=== PATIENT | male | born 1985 | race Two or more races ===

== ENCOUNTER 2016-12-02 20:37 | Inpatient (IN) | payer OTHER ==
[~2016-12-02] VITALS: Ht 190.5 cm; Wt 101.9 kg
[2016-12-02 20:45] LABS: BASOPHIL COUNT 0.1 K/uL (0-0.1); EOSINOPHIL (%) 3.4 % (0-5); EOSINOPHIL COUNT 0.4 K/uL (0-0.3); IMMATURE GRANULOCYTE (%) 0.3 % (0.0-0.7); INSTRUMENT ABS NEUTROPHIL CT 7.2 K/uL; LYMPHOCYTE COUNT 3.3 K/uL (1.0-2.8); MCH 31.4 PG (29.0-34.0); MCV 92.3 FL (86-99); MEAN PLAT.VOLUME 8.9 uM^3 (9.0-12.4); NEUTROPHIL (%) 59.8 % (45-76); NEUTROPHIL COUNT 7.2 K/uL (1.8-6.4); PLATELET COUNT 243 K/uL (156-360); RBC DIS.WIDTH-SD 41.1 % (39-53); RED BLOOD COUNT 4.55 M/uL (4.00-5.50); WHITE BLOOD COUNT 11.9 K/uL (4.1-10.2)
[2016-12-02 20:57] LABS: AMYLASE 99 IU/L (1-118); CHLORIDE 101 mEq/L (99-109); POTASSIUM 3.9 mEq/L (3.7-5.4); SODIUM 138 mEq/L (136-147)
[2016-12-02 20:59] LABS: GLUCOSE 122 mg/dL (70-99)
[2016-12-02 21:00] LABS: ANION GAP 11 MEQ/L (2-14)
[2016-12-02 21:02] LABS: SERUM ETHYL ALCOHOL 394 mg/dL
[2016-12-02 21:04] LABS: UREA NITROGEN (BUN) 6 mg/dL (9-23)
[2016-12-02 21:05] LABS: GFR ESTIMATE (CALCULATED) > 59 mL/min/
[2016-12-02 21:06] LABS: LIPASE 23 U/L (1.0-51.0)
[2016-12-03 04:56] VITALS: BP 136/81
[2016-12-03 07:51] VITALS: BP 137/75
[2016-12-03 11:43] VITALS: BP 128/81
[2016-12-03 17:20] VITALS: BP 153/91
[2016-12-03 17:23] LABS: ADD MIUA? NO; BILIRUBIN NEGATIVE; BLOOD NEGATIVE; COLOR YELLOW ((YELLOW)); GLUCOSE (STRIP) 50; KETONES 5; LEUKOCYTES NEGATIVE; NITRITE NEGATIVE; PROTEIN (STRIP) NEGATIVE; UCUL ADDED? NO
[2016-12-03 17:30] LABS: AMPHETAMINE NEGATIVE (500 ng/mL); BARBITURATES NEGATIVE (200 ng/mL); BENZODIAZEPINES NEGATIVE (150 ng/mL); COCAINE NEGATIVE (150 ng/mL); INTERNAL CONTROLS VALID? YES; METHADONE NEGATIVE (200 ng/mL); METHAMPHETAMINE NEGATIVE (500 ng/mL); OPIATES (MORPHINE) PRESUMPTIVE POSITIVE (100 ng/mL); OXYCODONE PRESUMPTIVE POSITIVE (100 ng/mL); PHENCYCLIDINE NEGATIVE (25 ng/mL); PROPOXYPHENE NEGATIVE (300 ng/mL); THC CANNABINOIDS PRESUMPTIVE POSITIVE (50 ng/mL); TRICYCLIC ANTIDEPRESSANTS NEGATIVE (300 ng/mL)
[2016-12-03 17:31] LABS: ADD MEDTOX COMMENT Y
[2016-12-03 20:00] VITALS: BP 144/90
[2016-12-04 00:02] VITALS: BP 147/80
[2016-12-04 04:25] VITALS: BP 144/90
[2016-12-04 07:22] VITALS: BP 143/90
[2016-12-04 07:26] LABS: ALKALINE PHOSPHATASE 30 IU/L (3-129); ANION GAP 9 MEQ/L (2-14); CHLORIDE 97 MEQ/L (99-109); GFR ESTIMATE (CALCULATED) > 59 mL/min/; GLUCOSE 96 mg/dL (70-99); POTASSIUM 3.9 MEQ/L (3.7-5.4); SAMPLE HEMOLYSIS CHECK 0; SAMPLE ICTERIC CHECK 0; SAMPLE LIPEMIA CHECK 0; SODIUM 134 MEQ/L (136-147); TOTAL BILIRUBIN 0.9 MG/DL (0.0-1.0); UREA NITROGEN (BUN) 5 mg/dL (9-23)
[2016-12-04 09:34] LABS: HEMATOCRIT 32.7 % (38.0-50.0); MCH 32.6 PG (29.0-34.0); MCHC 35.8 G/DL (30.0-36.0); MCV 91.1 FL (86-99); RBC DIS.WIDTH-CV 11.7 % (11.8-14.6); RBC DIS.WIDTH-SD 39.1 % (39-53)
[2016-12-04 09:39] LABS: RED BLOOD COUNT 3.59 M/uL (4.00-5.50)
[2016-12-04 10:04] LABS: MEAN PLAT.VOLUME 9.5 uM^3 (9.0-12.4); PLAT.SUFFICIENCY ADEQUATE
[2016-12-04 10:10] LABS: PLATELET COUNT 156 K/uL (156-360)
[2016-12-04 11:06] VITALS: BP 135/81
[2016-12-04 15:57] VITALS: BP 146/85
[2016-12-04] MEDS ORDERED: PANTOPRAZOLE SO40 MG PO (16:14)
[2016-12-04] MEDS ORDERED: AMLODIPINE BESYL5 MG PO (16:15)
[2016-12-05 00:16] VITALS: BP 141/82
[2016-12-05 17:38] VITALS: BP 143/92; BP 143/920
[2016-12-05 23:45] VITALS: BP 150/77
[2016-12-06 07:32] VITALS: BP 131/89
[2016-12-06 15:58] VITALS: BP 127/71
[2016-12-06 20:36] VITALS: BP 137/91
[2016-12-07 01:01] VITALS: BP 139/85
[2016-12-07 04:40] VITALS: BP 131/85
[2016-12-07] MEDS ORDERED: AUGMENTIN875 MG PO (09:27)
[2016-12-07] MEDS ORDERED: NORCO 5/3251 TABLET PO (09:27)
== END 2016-12-07 14:39 | disposition home health service (06) | DRG 904 ==
LOC: TRA 20:37 → SDC 22:10 → TRA 22:10 → 2SOUTH 12-03 01:55 → 3EAST 12-03 01:55
PROVIDERS: Emergency Medicine; Surgery
DX: S41.021A Laceration with foreign body of right shoulder, initial encounter (principal); S06.0X9A Concussion with loss of consciousness of unspecified duration, initial encounter; S41.121A Laceration with foreign body of right upper arm, initial encounter; S40.021A Contusion of right upper arm, initial encounter; F10.129 Alcohol abuse with intoxication, unspecified; F12.90 Cannabis use, unspecified, uncomplicated; I10 Essential (primary) hypertension; S01.322A Laceration with foreign body of left ear, initial encounter; V47.5XXA Car driver injured in collision with fixed or stationary object in traffic accident, initial encounter; Y93.9 Activity, unspecified; Y92.9 Unspecified place or not applicable; Y99.9 Unspecified external cause status
CPT/HCPCS: 70450; 71260; 72125; 72129; 72132; 73030; 73060; 74177; 80048; 80053; 81003; 82150; 83690; 84999; 85025; 85027; 86900; 86901; 99281; 99285; G0480; J0690; J1170; J2250; J2270; J2405; J3010; J7030; J7050